=== PATIENT | female | born 1990 | race Caucasian/White ===

== ENCOUNTER 2021-07-13 16:18 | Emergency (ER) | payer MEDICAID, OTHER ==
[~2021-07-13] VITALS: Ht 165 cm; Wt 106.0 kg
[2021-07-13 16:39] LABS: HEMATOCRIT 38 % (35-52); HEMOGLOBIN 12.4 g/dL (11.5-16.0); MEAN CORPUSCULAR HEMOGLOBIN 27 pg (25-34); MEAN CORPUSCULAR HGB CONC 33 g/dL (32-36); MEAN CORPUSCULAR VOLUME 81 fL (80-99); MEAN PLATELET VOLUME 9.9 fL (9.0-12.2); PLATELET COUNT 323 10^3/uL (130-400)
[2021-07-13 16:40] LABS: BASOPHILS % (AUTO) 0 % (0-10); EOSINOPHILS # (AUTO) 0.3 10^3/uL (0.0-0.3); EOSINOPHILS % (AUTO) 2 % (0-10); LYMPHOCYTES % (AUTO) 15 % (12-44); MONOCYTES # (AUTO) 0.5 X 10^3 (0.0-1.0); MONOCYTES % (AUTO) 4 % (0-12); NEUTROPHILS # (AUTO) 10.2 X 10^3 (1.8-7.8); NEUTROPHILS % (AUTO) 79 % (42-75)
[2021-07-13] MEDS ORDERED: NS IV 1000 ML 1,000 ML IV STA (16:43)
[2021-07-13] MEDS ORDERED: ONDANSETRON 4 MG/2 ML (SDV) Z0FRAN IVP STA (16:43)
[2021-07-13] MEDS ORDERED: KETOROLAC 30 MG/ML VIAL IVP STA (16:43)
--- NOTE | 2021-07-13 16:44 | ED General ---
General Chief Complaint: - Reproductive Stated Complaint: SUPRAPUBIC PAIN; NAUSEA Nursing Triage Note: LOWER ABD CRAMPING SINCE YESTERDAY. REPORTS LEFT FLANK PAIN WAXING AND WANING. REPORTS TO TAKE A DEEP BREATH. Source of Information: Patient History of Present Illness Date Seen by Provider: Jul 13, 2021 Time Seen by Provider: 16:23 Initial Comments 31-year-old female presenting with complaints of left flank pain that started yesterday. The pain radiates down to her groin. She denies fever, chills, pain with urination, diarrhea, vomiting, blood in her urine. She has had nausea but again no vomiting. She has had increase in her bowel movements but they have been normal and not loose or watery. She has had a previous kidney stone on the opposite side but it did not feel like the pain she is having now. She did take 800 mg of ibuprofen last night and that had controlled her pain and now she could go to bed. Today she started having more severe pain this afternoon and evening. She tried to go to the urgent care but because her pain was so severe they had advised her she needed to come to the ED. Timing/Duration: 1-2 Days Severity: Severe Associated Systoms: No Chest Pain, No Cough, No Diaphoresis, No Fever/Chills, No Headaches, No Loss of Appetite, No Malaise; Nausea/Vomiting (Nausea but no vomiting); No Rash, No Seizure, No Shortness of Air, No Syncope, No Weakness Allergies and Home Medications Allergies Coded Allergies: No Known Drug Allergies (Unverified , 07/13/21) Patient Home Medication List Home Medication List Reviewed: Yes Acetaminophen with Codeine (Acetaminophen-Cod #3 Tablet) 1 Each Tablet, 1 EACH PO Q4H PRN for PAIN-SEVERE (8-10) Prescribed by: YOLIS HEWITT on 07/13/211745 Ciprofloxacin HCl (Ciprofloxacin HCl) 500 Mg Tablet, 500 MG PO BID Prescribed by: YOLIS HEWITT on 07/13/211744 Ibuprofen (Ibuprofen) 800 Mg Tablet, 800 MG PO Q8H PRN for PAIN Prescribed by: YOLIS HEWITT on 07/13/211744 Ondansetron (Ondansetron Odt) 4 Mg Tab.rapdis, 4 MG PO Q6H PRN for NAUSEA/VOMITING Prescribed by: YOLIS HEWITT on 07/13/21 1750 Tamsulosin HCl (Flomax) 0.4 Mg Cap, 0.4 MG PO DAILY Prescribed by: YOLIS ALTAMIRANORT on 07/13/21 1745 Review of Systems Review of Systems Constitutional: No chills, No fever EENTM: no symptoms reported Respiratory: no symptoms reported Cardiovascular: no symptoms reported Gastrointestinal: see HPI Genitourinary: No dysuria, No frequency, No hematuria Musculoskeletal: no symptoms reported Skin: No change in color, No rash Psychiatric/Neurological: No Symptoms Reported Hematologic/Lymphatic: No Symptoms Reported Past Qsplvif-Wfoloo-Ydfigw Hx Patient Social History Tobacco Use?: Yes Tobacco type used: Cigarettes Smoking Status: Current Everyday Smoker Use of E-Cig and/or Vaping dev: No Substance use?: No Alcohol Use?: No Pt feels they are or have been: No Past Medical History Surgery/Hospitalization HX: Kidney stones Physical Exam Vital Signs Vital Signs - First Documented 07/13/21 16:22 Temp 36.3 Pulse 106 Resp 16 B/P (MAP) 141/103 (116) Pulse Ox 99 O2 Delivery Room Air Capillary Refill : Less Than 3 Seconds Height, Weight, BMI Height: '" Weight: lbs. oz. kg; 38.00 BMI Method: General Appearance: Moderate Distress, Obese HEENT: PERRL/EOMI, Pharynx Normal Neck: Full Range of Motion, Normal Inspection, Non Tender, Supple Respiratory: Chest Non Tender, Lungs Clear, Normal Breath Sounds, No Accessory Muscle Use, No Respiratory Distress Cardiovascular: Regular Rate, Rhythm, Normal Peripheral Pulses Gastrointestinal: Normal Bowel Sounds, No Pulsatile Mass, Non Tender, Soft Rectal: Deferred Back: No CVA Tenderness, No Vertebral Tenderness, Other (Left lateral flank pain) Extremity: Normal Capillary Refill, Normal Inspection, No Pedal Edema Neurologic/Psychiatric: Alert, Oriented x3, outsole leveler II-XII Norm as Tested Skin: Normal Color, Warm/Dry Progress/Results/Core Measures Suspected Sepsis SIRS Temperature: Pulse: 106 Respiratory Rate: 16 Laboratory Tests 07/13/21 16:30: White Blood Count 13.0H Blood Pressure 141 /103 Mean: 116 Laboratory Tests 07/13/21 16:30: Creatinine 0.62, Platelet Count 323, Total Bilirubin < 0.2 Results/Orders Lab Results Laboratory Tests Test 07/13/21 16:30 07/13/21 17:14 Range/Units White Blood Count 13.0 H 4.3-11.0 10^3/uL Red Blood Count 4.61 3.80-5.11 10^6/uL Hemoglobin 12.4 11.5-16.0 g/dL Hematocrit 38 35-52 % Mean Corpuscular Volume 81 80-99 fL Mean Corpuscular Hemoglobin 27 25-34 pg Mean Corpuscular Hemoglobin Concent 33 32-36 g/dL Red Cell Distribution Width 14.4 10.0-14.5 % Platelet Count 323 130-400 10^3/uL Mean Platelet Volume 9.9 9.0-12.2 fL Immature Granulocyte % (Auto) 0 % Neutrophils (%) (Auto) 79 H 42-75 % Lymphocytes (%) (Auto) 15 12-44 % Monocytes (%) (Auto) 4 0-12 % Eosinophils (%) (Auto) 2 0-10 % Basophils (%) (Auto) 0 0-10 % Neutrophils # (Auto) 10.2 H 1.8-7.8 X 10^3 Lymphocytes # (Auto) 2.0 1.0-4.0 X 10^3 Monocytes # (Auto) 0.5 0.0-1.0 X 10^3 Eosinophils # (Auto) 0.3 0.0-0.3 10^3/uL Basophils # (Auto) 0.0 0.0-0.1 10^3/uL Immature Granulocyte # (Auto) 0.1 0.0-0.1 10^3/uL Sodium Level 137 135-145 MMOL/L Potassium Level 4.3 3.6-5.0 MMOL/L Chloride Level 105 98-107 MMOL/L Carbon Dioxide Level 20 L 21-32 MMOL/L Anion Gap 12 5-14 MMOL/L Blood Urea Nitrogen 13 7-18 MG/DL Creatinine 0.62 0.60-1.30 MG/DL Estimat Glomerular Filtration Rate 112 BUN/Creatinine Ratio 21 Glucose Level 150 H 70-105 MG/DL Calcium Level 9.2 8.5-10.1 MG/DL Corrected Calcium 9.0 8.5-10.1 MG/DL Total Bilirubin < 0.2 0.1-1.0 MG/DL Aspartate Amino Transf (AST/SGOT) 12 5-34 U/L Alanine Aminotransferase (ALT/SGPT) 14 0-55 U/L Alkaline Phosphatase 104 40-136 U/L Total Protein 7.6 6.4-8.2 GM/DL Albumin 4.3 3.2-4.5 GM/DL Serum Test, Qualitative NEGATIVE NEGATIVE Urine Color YELLOW Urine Clarity CLOUDY Urine pH 6.0 5-9 Urine Specific [place] >=1.030 1.016-1.022 Urine Protein TRACE H NEGATIVE Urine Glucose (UA) NEGATIVE NEGATIVE Urine Ketones NEGATIVE NEGATIVE Urine Nitrite NEGATIVE NEGATIVE Urine Bilirubin NEGATIVE NEGATIVE Urine Urobilinogen 0.2 < = 1.0 MG/DL Urine Leukocyte Esterase 1+ H NEGATIVE Urine RBC (Auto) 3+ H NEGATIVE Urine RBC 5-10 H /HPF Urine WBC 10-25 H /HPF Urine Squamous Epithelial Cells 5-10 /HPF Urine Crystals NONE /LPF Urine Bacteria LARGE H /HPF Urine Casts NONE /LPF Urine Mucus NEGATIVE /LPF Urine Culture Indicated YES My Orders Orders - YOLIS HEWITT MD Comprehensive Metabolic Panel (07/13/21 16:24) Ua Culture If Indicated (07/13/21 16:24) Hcg,Qualitative Serum (07/13/21 16:24) Ed Iv/Invasive Line Start (07/13/21 16:24) Cbc With Automated Diff (07/13/21 16:24) Ct Abdomen/Pelvis Wo (07/13/21 16:24) Ns Iv 1000 Ml (Sodium Chloride 0.9%) (07/13/21 16:43) Ketorolac Injection (Toradol Injection) (07/13/21 16:43) Ondansetron Injection (Zofran Injectio (07/13/21 16:43) Strain Urine (07/13/21 17:17) Tamsulosin Capsule (Flomax Capsule) (07/13/21 17:17) Urine Culture (07/13/21 17:14) Rx-Ondansetron Po (Rx-Zofran Po) (07/13/21 18:00) Rx-Acetaminophen/Codeine (Rx-Tylenol #3) (07/13/21 18:00) Ciprofloxacin Tablet (Cipro Tablet) (07/13/21 17:51) Rx-Acetaminophen/Codeine (Rx-Tylenol #3) (07/13/21 17:47) Rx-Ondansetron Po (Rx-Zofran Po) (07/13/21 17:47) Medications Given in ED Current Medications Medications Dose Ordered Sig/Donna Route Start Time Stop Time Status Last Admin Dose Admin Acetaminophen/ Codeine Phosphate 1 tab Q4H PRN PO 07/13/21 18:00 07/13/21 18:09 DC 07/13/21 17:53 1 TAB Ondansetron HCl 4 mg Q6H PRN PO 07/13/21 18:00 07/13/21 18:09 DC 07/13/21 17:54 4 MG Vital Signs/I&O 07/13/21 07/13/21 16:22 17:30 Temp 36.3 Pulse 106 85 Resp 16 19 B/P (MAP) 141/103 (116) 126/77 Pulse Ox 99 99 O2 Delivery Room Air Room Air Capillary Refill : Less Than 3 Seconds Blood Pressure Mean: 116 Progress Note #1: Progress Note Obtain urinalysis as well as basic labs. Give IV fluids for hydration. Zofran for nausea. Toradol for pain. Obtain a CT scan of the abdomen pelvis without contrast to look for kidney stones or pathology that is causing her left flank pain. Progress Note #2: Progress Note CBC shows mild elevation of her white blood cell count to 13,000. Her chemistry appear stable. Her urine does show blood and leukocyte esterase with bacteria. She does have epithelial cells as well. Her CT scan shows a 5 x 7 mm kidney stone in the proximal left ureter with some obstruction. Counseled patient on results and advised that she would need to push fluids and rest. Use Flomax or tamsulosin to try and help the stone pass. For severe pain use Tylenol with codeine as patient states that works best for her. Given information to see Dr. Kwok with urology if she is not having the stone pass within the next few days. Counseled on follow-up and return precautions. Patient did state that her pain and symptoms were improved with treatment here in the ED. Diagnostic Imaging Diagonstic Imaging: CT Plain Films/CT/US/NM/MRI: abdomen, pelvis Comments [facility] [place], [place] NAME: ITA DIAZ [facility] REC#: [id number] PT STATUS: DEP ER : 1990 PHYSICIAN: YOLIS HEWITT MD ADMIT DATE: 07/13/21/ER FS Draft Date of Exam:07/13/21 CT ABDOMEN/PELVIS WO PROCEDURE: CT abdomen and pelvis without contrast. TECHNIQUE: Multiple contiguous axial images were obtained through the abdomen and pelvis without the use of intravenous contrast. Auto Exposure Controls were utilized during the CT exam to meet ALARA standards for radiation dose reduction. INDICATION: Suprapubic pain. Left flank pain. COMPARISON: None FINDINGS: Included portions of the lung bases are clear. CT ABDOMEN: 5 x 7 mm calculus is identified at the left UPJ. As a result, there is mild proximal hydronephrosis. No other renal or ureteral calculi are seen on either side. Additionally, there is no hydronephrosis or other evidence of obstruction on the right. No renal masses are seen on this noncontrast exam. The adrenal glands, spleen, pancreas, and liver have an unremarkable noncontrast CT appearance. There is no loculated fluid collection, free fluid or free air within the abdomen. No abnormal mesenteric or retroperitoneal adenopathy is seen. Small bowel loops are nondistended. Normal appendix is identified. Osseous structures show no acute abnormalities CT PELVIS: Urinary bladder is unopacified and nondistended. No calculi are seen within the bladder. There is no loculated fluid collection, free fluid or free air. No abnormal lymph nodes are seen. Osseous structures show no acute abnormalities. IMPRESSION: 1. Mild left-sided hydronephrosis secondary to 5 x 7 mm calculus at the left UPJ. Dictated on workstation # [id number] Dict: 07/13/21 1729 Trans: 07/13/21 1733 [facility] [id number] Interpreted by: BRADLY ABDULLAHI MD Electronically signed by: Reviewed: Reviewed by Me Departure Impression Primary Impression: Calculus of proximal left ureter Additional Impression: Renal colic on left side Disposition: 01 HOME, SELF-CARE Condition: Stable Departure-Patient Inst. Decision time for Depature: 17:43 Referrals: IRAJ PEDERSEN MD (PCP/Family) Primary Care Physician JANEL JORDAN MD Patient Instructions: Kidney Stone, Adult ED, Kidney Stone Diet, How to Strain Your Urine Add. Discharge Instructions: Stay well-hydrated and make sure you are drinking plenty of water and fluids. Use the Flomax or tamsulosin medicine to help relax the ureter and hopefully this will help the stone pass. Strain your urine to see when the stone passes. The stone measured 5 mm x 7 mm so you may need to have the Urologist treat you to help the kidney stone pass, or break up the stone so it may pass. Follow-up with clinic or urology if the pain is not improving and you are not seen the stone pass on its own. They may have to do a procedure to help break up the stone. Return for fever over 101 Fahrenheit, uncontrolled pain, uncontrolled vomiting All discharge instructions reviewed with patient and/or family. Voiced understanding. Scripts Ondansetron (Ondansetron Odt) 4 Mg Tab.rapdis 4 MG PO Q6H PRN for NAUSEA/VOMITING for 5 Days, #20 TAB 0 Refills Prov: YOLIS HEWITT MD 07/13/21 Tamsulosin HCl (Flomax) 0.4 Mg Cap 0.4 MG PO DAILY for renal colic for 7 Days, #7 CAP 0 Refills Prov: YOLIS HEWITT MD 07/13/21 Ibuprofen (Ibuprofen) 800 Mg Tablet 800 MG PO Q8H PRN for PAIN for 10 Days, #30 TAB 0 Refills Prov: YOLIS HEWITT MD 07/13/21 Acetaminophen with Codeine (Acetaminophen-Cod #3 Tablet) 1 Each Tablet 1 EACH PO Q4H PRN for PAIN-SEVERE (8-10) for 7 Days, #40 TAB 0 Refills Prov: YOLIS HEWITT MD 07/13/21 Ciprofloxacin HCl (Ciprofloxacin HCl) 500 Mg Tablet 500 MG PO BID for uti for 7 Days, #14 TAB 0 Refills Prov: YOLIS HEWITT MD 07/13/21 YOLIS HEWITT MD Jul 13, 2021 16:44
[2021-07-13 16:54] LABS: ALANINE AMINOTRANSFERASE 14 U/L (0-55); ALBUMIN 4.3 GM/DL (3.2-4.5); ALKALINE PHOSPHATASE 104 U/L (40-136); BILIRUBIN,TOTAL < 0.2 MG/DL (0.1-1.0); BUN/CREATININE RATIO 21; CALCIUM 9.2 MG/DL (8.5-10.1); CARBON DIOXIDE 20 MMOL/L (21-32); CHLORIDE 105 MMOL/L (98-107); CREATININE SERUM 0.62 MG/DL (0.60-1.30); GFR ESTIMATED 112; GLUCOSE 150 MG/DL (70-105); POTASSIUM 4.3 MMOL/L (3.6-5.0); SODIUM 137 MMOL/L (135-145); TOTAL PROTEIN 7.6 GM/DL (6.4-8.2)
[2021-07-13] MEDS ORDERED: TAMSULOSIN 0.4 MG (FLOMAX) CAP PO STA (17:17)
[2021-07-13 17:21] LABS: BILIRUBIN,URINE NEGATIVE (NEGATIVE); CLARITY,URINE CLOUDY; COLOR,URINE YELLOW; GLUCOSE, URINE (UA) NEGATIVE (NEGATIVE); KETONES,URINE NEGATIVE (NEGATIVE); LEUKOCYTE ESTERASE ,URINE 1+ (NEGATIVE); NITRITE,URINE NEGATIVE (NEGATIVE); PROTEIN,URINE TRACE (NEGATIVE)
[2021-07-13 17:22] LABS: BACTERIA,URINE LARGE /HPF
[2021-07-13 17:30] VITALS: BP 126/77
--- NOTE | 2021-07-13 17:34 | Diagnostic Imaging Report ---
PROCEDURE: CT abdomen and pelvis without contrast. TECHNIQUE: Multiple contiguous axial images were obtained through the abdomen and pelvis without the use of intravenous contrast. Auto Exposure Controls were utilized during the CT exam to meet ALARA standards for radiation dose reduction. INDICATION: Suprapubic pain. Left flank pain. COMPARISON: None FINDINGS: Included portions of the lung bases are clear. CT ABDOMEN: 5 x 7 mm calculus is identified at the left UPJ. As a result, there is mild proximal hydronephrosis. No other renal or ureteral calculi are seen on either side. Additionally, there is no hydronephrosis or other evidence of obstruction on the right. No renal masses are seen on this noncontrast exam. The adrenal glands, spleen, pancreas, and liver have an unremarkable noncontrast CT appearance. There is no loculated fluid collection, free fluid or free air within the abdomen. No abnormal mesenteric or retroperitoneal adenopathy is seen. Small bowel loops are nondistended. Normal appendix is identified. Osseous structures show no acute abnormalities CT PELVIS: Urinary bladder is unopacified and nondistended. No calculi are seen within the bladder. There is no loculated fluid collection, free fluid or free air. No abnormal lymph nodes are seen. Osseous structures show no acute abnormalities. IMPRESSION: 1. Mild left-sided hydronephrosis secondary to 5 x 7 mm calculus at the left UPJ. Dictated by: Dictated on workstation # [id number]
[2021-07-13] MEDS ORDERED: CIPR500T5 PO (17:45)
[2021-07-13] MEDS ORDERED: IBUP-1780 PO (17:45)
[2021-07-13] MEDS ORDERED: TMSL.4C PO (17:45)
[2021-07-13] MEDS ORDERED: ACET1TAB43 PO (17:45)
[2021-07-13] MEDS ORDERED: RX-ONDANSETRON 4 MG ODT (ZOFRAN) PPK #4 ONE (17:47)
[2021-07-13] MEDS ORDERED: RX-ACETAMINOPHEN/CODEINE TAB PPK #4 ONE (17:47)
[2021-07-13] MEDS ORDERED: ONDA4TAB11 PO (17:50)
[2021-07-13] MEDS ORDERED: CIPROFLOXACIN 500 MG (CIPRO) TABLET PO STA (17:51)
[2021-07-13] MEDS ORDERED: RX-ONDANSETRON 4 MG ODT (ZOFRAN) PPK #4 PO PRN (18:00)
[2021-07-13] MEDS ORDERED: RX-ACETAMINOPHEN/CODEINE TAB PPK #4 PO PRN (18:00)
== END 2021-07-13 17:50 | disposition home or self-care (01) ==
LOC: ER FS 16:20
DX: N13.2 Hydronephrosis with renal and ureteral calculous obstruction (principal); N23 Unspecified renal colic; E66.9 Obesity, unspecified; F17.210 Nicotine dependence, cigarettes, uncomplicated; Z68.38 Body mass index [BMI] 38.0-38.9, adult
CPT/HCPCS: 36415; 74176; 80053; 81000; 84703; 85025; 87077; 87088; 87186

== ENCOUNTER 2022-05-06 11:33 | Emergency (ER) | payer MEDICAID ==
[~2022-05-06] VITALS: Ht 165.1 cm; Wt 108.3 kg
[~2022-05-06 11:33] MED LIST: ACET-11 PO; CIPR500T5 PO; IBUP-1780 PO; ONDA4TAB11 PO; TMSL.4C PO
--- NOTE | 2022-05-06 12:12 | ED Integumentary General ---
General Chief Complaint: Lower Extremity Stated Complaint: THIGH PAIN History of Present Illness Date Seen by Provider: May 06, 2022 Time Seen by Provider: 11:45 Initial Comments 31-year-old female is here with complaints of right vulvar swelling, redness, and drainage for the past 2 weeks. Denies insect bites, fever, chills. Patient shaves her pubic area. Allergies and Home Medications Allergies Coded Allergies: No Known Drug Allergies (Unverified , 07/13/21) Patient Home Medication List Home Medication List Reviewed: Yes Acetaminophen with Codeine (Acetaminophen-Cod #3 Tablet) 1 Each Tablet, 1 EACH PO Q4H PRN for PAIN-SEVERE (8-10) Prescribed by: YOLIS HEWITT on 07/13/21 174 Ciprofloxacin HCl (Ciprofloxacin HCl) 500 Mg Tablet, 500 MG PO BID Prescribed by: YOLIS HEWITT on 07/13/21 174 Ibuprofen (Ibuprofen) 800 Mg Tablet, 800 MG PO Q8H PRN for PAIN Prescribed by: YOLIS HEWITT on 07/13/21 174 Ondansetron (Ondansetron Odt) 4 Mg Tab.rapdis, 4 MG PO Q6H PRN for NAUSEA/VOMITING Prescribed by: YOLIS HEWITT on 07/13/21 175 Tamsulosin HCl (Flomax) 0.4 Mg Cap, 0.4 MG PO DAILY Prescribed by: YOLIS HEWITT on 07/13/21 174 Review of Systems Review of Systems Constitutional: no symptoms reported EENTM: no symptoms reported Respiratory: no symptoms reported Cardiovascular: no symptoms reported Gastrointestinal: no symptoms reported Genitourinary: other (genital lesion) Musculoskeletal: no symptoms reported Skin: other (right vulva area) Psychiatric/Neurological: No Symptoms Reported Endocrine: No Symptoms Reported Hematologic/Lymphatic: No Symptoms Reported Past Akfvrrs-Oymbxz-Jdssds Hx Patient Social History Tobacco Use?: Yes Tobacco type used: Cigarettes Smoking Status: Current Everyday Smoker Use of E-Cig and/or Vaping dev: No Substance use?: No Alcohol Use?: No Pt feels they are or have been: No Past Medical History Surgery/Hospitalization HX: Kidney stones Physical Exam Vital Signs Capillary Refill : General Appearance: WD/WN, no apparent distress HEENT: PERRL/EOMI Neck: full range of motion Gastrointestinal: normal bowel sounds, non tender, soft, no organomegaly, no pulsatile mass Back: no CVA tenderness Neurologic/Psychiatric: alert, oriented x 3 Skin: other (Skin over the right pubic ( vulva) area shows a broken abscess thatis draining serous fluid, with surrounding area of erythema and inflammation spreading into the vulva and thigh crease. It is warm to touch and tender. ) Skin Problem Location: other Skin Problem Character: drainage, other (Pt appears to have hydradenitis which triggered this, since she has areas of hyperpigmentation showing simialr healed lesions in the past, also she multiple pustules in the area) Lymphatic: no adenopathy Progress/Results/Core Measures Progress Progress Note : Progress Note 1. CELLULITIS AND DRAINAGE OF RIGHT VULVA: HYDRADENITIS - See clinical exam for more info - Pt already broke the abscess and drained it. - Culture sent - Bactrim DS bid for 10 days - Follow up with [facility] and / or PCP, and make derm appointment for management of h ydradenitis -The patient was seen in the ED, and treated appropriately to presentation at a specific point in time. Patient is informed that there is a possibility that disease and illness can evolve and change in acuity rapidly or slowly after patient is discharged from the ER. Precautionary advice given to the patient for immediate return to ER if symptoms worsen or do not resolve, and to seek emergency care sooner rather than later. Pt also advised on the importance of PCP follow up and compliance with management and follow up plan with PCP and/or specialist, as this is part of the management plan. Pt verbally expressed understanding. Departure Impression Primary Impression: Hydradenitis Additional Impression: Vulval cellulitis Disposition: 01 HOME, SELF-CARE Condition: Stable Departure-Patient Inst. Referrals: SELFIRAJ MD (PCP/Family) Primary Care Physician Patient Instructions: Cellulitis (Skin Infection), Adult (DC), Hidradenitis Suppurativa, Vulvitis Add. Discharge Instructions: - Bactrim DS bid for 10 days - Follow up with [facility] and / or PCP, and make derm appointment for management of hydradenitis - Keep area clean and dry, wash after urination All discharge instructions reviewed with patient and/or family. Voiced understanding. Scripts Sulfamethoxazole/Trimethoprim (Bactrim Ds Tablet) 1 Each Tablet 1 EACH PO BID for 10 Days, #20 TAB Prov: THAI KEITA MD 05/06/22 THAI KEITA MD May 06, 2022 12:11
[2022-05-06] MEDS ORDERED: SULF1TAB38 PO (12:19)
[2022-05-06 12:22] VITALS: BP 151/98
== END 2022-05-06 12:22 | disposition home or self-care (01) ==
LOC: EDUNIT# 11:33 → ER FS 11:36
DX: N76.2 Acute vulvitis (principal); L73.2 Hidradenitis suppurativa; F17.210 Nicotine dependence, cigarettes, uncomplicated
CPT/HCPCS: 87070; 87205; 99282